=== PATIENT | male | born 1985 | race Caucasian/White ===

== ENCOUNTER 2016-07-15 07:19 | Emergency (ER) | payer OTHER ==
[2016-07-15] MEDS ORDERED: TORAdol 30 mg Injection IM ONE (07:27)
[2016-07-15] MEDS ORDERED: Norflex 60 MG/2 ML IM ONE (07:27)
[2016-07-15 07:32] VITALS: O2SAT 97
[2016-07-15] MEDS ORDERED: TORAdol 30 mg Injection ONE (07:32)
[2016-07-15] MEDS ORDERED: Norflex 60 MG/2 ML ONE (07:33)
--- NOTE | 2016-07-15 07:35 | ERPHSYRPT ---
- History of Present Illness Time Seen by Provider: 07/15/16 07:30 Source: patient Exam Limitations: no limitations Physician History: c/o back pain and left leg pain for 1 day, Started when moving furniture Timing/Duration: yesterday Method of Injury: bending, lifting, twisted Quality: aching Back Pain Location: lumbar spine, paraspinous muscles Back Pain Radiation: lower legs Severity of Pain-Max: moderate Severity of Pain-Current: moderate Modifying Factors: Improves With: nothing Associated Symptoms: denies symptoms Previous symptoms: no prior history Home Medications: No Reportable Medications [No Reported Medications] 07/15/16 [History] Hx Tetanus, Diphtheria Vaccination/Date Given: No Hx Influenza Vaccination/Date Given: No Hx Pneumococcal Vaccination/Date Given: No - Review of Systems Constitutional: No Fever, No Chills Eyes: No Symptoms Ears, Nose, & Throat: No Symptoms Respiratory: No Symptoms, No Cough, No Dyspnea Cardiac: No Symptoms, No Chest Pain, No Edema, No Syncope Abdominal/Gastrointestinal: No Symptoms, No Abdominal Pain, No Nausea, No Vomiting, No Diarrhea Genitourinary Symptoms: No Symptoms, No Dysuria Musculoskeletal: Back Pain, No Neck Pain Skin: No Symptoms, No Rash Neurological: No Dizziness, No Focal Weakness, No Sensory Changes Psychological: No Symptoms Endocrine: No Symptoms All Other Systems: Reviewed and Negative - Past Medical History Pertinent Past Medical History: Yes Respiratory History: Asthma Psycho-Social History: Attention Deficit Disorder Other Medical History: has never been confirmed but states he thinks he has hepatitis - Past Surgical History Past Surgical History: No - Social History Smoking Status: Current every day smoker Exposure to second hand smoke: Yes - Physical Exam General Appearance: no apparent distress Eye Exam: PERRL/EOMI Ears, Nose, Throat Exam: normal ENT inspection Neck Exam: normal inspection Back Exam: decreased range of motion, muscle spasm, No CVA tenderness, No vertebral tenderness Extremity Exam: normal inspection - Course Nursing assessment & vital signs reviewed: Yes Ordered Tests: Medication Summary Discontinued Medications Generic Name Dose Route Start Last Admin Trade Name Freq PRN Reason Stop Dose Admin Ketorolac Tromethamine 60 mg 07/15/16 07:27 Toradol 30 Mg Injection IM 07/15/16 07:28 STAT ONE Orphenadrine Citrate 60 mg 07/15/16 07:27 Norflex 60 Mg/2 Ml IM 07/15/16 07:28 STAT ONE - Progress Progress: improved, pain not gone completely Counseled pt/family regarding: diagnosis, need for follow-up - Departure Time of Disposition: 07:34 Departure Disposition: Home Clinical Impression: Lumbalgia Qualifiers: Chronicity: acute Back pain laterality: left Sciatica presence: with sciatica Sciatica laterality: sciatica of left side Qualified Code(s): M54.42 - Lumbago with sciatica, left side Condition: Stable Critical Care Time: No Referrals: ELIGIO HENDERSON [Primary Care Provider] - Instructions: Low Back Pain Additional Instructions: BACK INJURY 1. May apply moist heat frequently for relief of pain. Take care not to burn the skin. Do not use heat for more than 30 minutes at a time. 2. Try to sleep on a firm bed, flat on your back. 3. If no improvement is noticed in 2-3 days, follow up with your family physician. 4. If you notice any numbness, tingling, weakness, or problems with your bowel or bladder, you should call your family physician or return to the emergency department. Prescriptions: Cyclobenzaprine HCl 10 mg PO TID #30 tablet Naproxen 375 mg [Naprosyn 375 mg] 375 mg PO Q8H #30 tablet
[2016-07-15 07:55] VITALS: BP 116/79; PULSE 78
== END 2016-07-15 08:00 | disposition home or self-care (01) ==
LOC: ED 07:19
DX: M54.42 Lumbago with sciatica, left side (principal); M54.9 Dorsalgia, unspecified; M79.605 Pain in left leg; X50.0XXA Overexertion from strenuous movement or load, initial encounter; Y93.E6 Activity, residential relocation
CPT/HCPCS: 96372; 99283; 99284; J1885; J2360

== ENCOUNTER 2017-02-01 13:41 | Emergency (ER) | payer OTHER ==
[2017-02-01 14:20] LABS: BASOPHIL % 0.9 % (0.0-0.4); Eosinophil % 2.5 % (0.00-5.0); Granulocytes % 58.4 % (36.0-66.0); Lymphocytes % 29.4 % (24.0-44.0); Mean Cell Volume 92.8 fl (78-100); Mean Corpuscular Hemoglobin 31.4 pg (26-32); Mean Platelet Volume 9.8 fl (6-9.5); Monocytes % 8.8 % (0.0-12.0); Platelet Count 364 K/mm3 (150-450); Red Cell Distribution Width 12.7 % (11.5-14.0); White Blood Count 9.2 K/mm3 (4.0-10.5)
--- NOTE | 2017-02-01 14:22 | ERPHSYRPT ---
- History of Present Illness Time Seen by Provider: 02/01/17 13:53 Source: patient, other (skilled nursing records) Patient Subjective Stated Complaint: PT REPROTS HX OF LIVER PROBLEMS-STATES HE BEGAN HAVING ABD PAIN ET NAUSEA YESTERDAY-REPORTS CHRONIC DIARHEA-PT HAS HX OF HEB B ET C-DENIES VOMITING REPORTS NAUSEA Triage Nursing Assessment: PT PINK WARM ET [id number] EASY ET NONALBORED- ABD NONTENDER TO PALP-PT HOLD ET PUSHING ON RIGHT UPPER QUAD Physician History: CC: RUQ abd pain Hx: 31 y/o [facility] inmate has hx of known hep b and hep c. He states he has right upper abd pain for 2 days. [facility] doctor saw him today and sent him here for labs and sonogram. No fever or chills. Some diarrhea. No vomiting. Not yellow. Timing/Duration: day(s) (2) Allergies/Adverse Reactions: No Known Drug Allergies Allergy (Verified 02/01/17 13:53) Home Medications: Albuterol Sulfate [Ventolin Hfa] 8 gm IH BID 02/01/17 [History] Ibuprofen 800 mg PO BID 02/01/17 [History] Olanzapine [Zyprexa] 50 mg PO BID 02/01/17 [History] Omeprazole 20 MG [Prilosec 20 mg] 20 mg PO DAILY 02/01/17 [History] Sertraline HCl 50 mg [Zoloft 50 mg Tablet] 50 mg PO DAILY 02/01/17 [History] Hx Tetanus, Diphtheria Vaccination/Date Given: No Hx Influenza Vaccination/Date Given: No Hx Pneumococcal Vaccination/Date Given: No Immunizations Up to Date: Yes - Review of Systems Constitutional: Malaise, No Fever, No Chills Eyes: No Symptoms Ears, Nose, & Throat: No Symptoms Respiratory: No Cough, No Dyspnea Cardiac: No Chest Pain Abdominal/Gastrointestinal: Abdominal Pain, Diarrhea, No Nausea, No Vomiting Genitourinary Symptoms: No Dysuria Musculoskeletal: Back Pain (right flank) Skin: No Rash Neurological: No Headache All Other Systems: Reviewed and Negative - Past Medical History Pertinent Past Medical History: Yes Respiratory History: Asthma Psycho-Social History: Attention Deficit Disorder Other Medical History: Hepatitis B and C - Past Surgical History Past Surgical History: No - Social History Smoking Status: Current every day smoker How long have you smoked: YRS Exposure to second hand smoke: Yes Drug Use: bath salts, methamphetamines, narcotics Patient Lives Alone: No ([facility]) - Nursing Vital Signs Nursing Vital Signs: Initial Vital Signs Temperature 98.2 F 02/01/17 13:52 Pulse Rate 77 02/01/17 13:52 Respiratory Rate 20 02/01/17 13:52 Blood Pressure 147/82 02/01/17 13:52 O2 Sat by Pulse Oximetry 97 02/01/17 13:52 Pain Scale Pain Intensity 8 - Physical Exam General Appearance: no apparent distress, alert Eye Exam: PERRL/EOMI, No scleral icterus Ears, Nose, Throat Exam: normal ENT inspection, moist mucous membranes Neck Exam: normal inspection, non-tender, supple Respiratory Exam: normal breath sounds, lungs clear Cardiovascular Exam: regular rate/rhythm Gastrointestinal/Abdomen Exam: soft, tenderness (mild RUQ and right flank without guarding), No distention, No mass, No guarding Male Genitalia Exam: normal genitalia Back Exam: normal inspection Extremity Exam: normal range of motion, No pedal edema Neurologic Exam: alert, oriented x 3, cooperative, nml station & gait, sensation nml, motor deficits Skin Exam: warm, dry, No rash, No jaundice SpO2 Interpretation: normal SpO2: 97 Oxygen Delivery: Room Air - Course Nursing assessment & vital signs reviewed: Yes Ordered Tests: Active Orders 24 hr Category Date Time Status Clean Catch Urine Specimen STAT Care 02/01/17 14:00 Active IV Insertion STAT Care 02/01/17 14:00 Active NPO (ED) STAT Care 02/01/17 14:00 Active OBSTR/ACUTE ABDOMEN SERIES Stat Exams 02/01/17 14:01 Completed UPPER ABDOMEN [US] Stat Exams 02/01/17 Completed BMP Stat Lab 02/01/17 14:00 Completed CBC W DIFF Stat Lab 02/01/17 14:00 Completed Hepatic Function Panel Stat Lab 02/01/17 14:00 Completed LIPASE Stat Lab 02/01/17 14:00 Completed PROTIME WITH INR Stat Lab 02/01/17 14:00 Completed UA W/RFX UR CULTURE Stat Lab 02/01/17 14:40 Completed Lab/Rad Data: Laboratory Result Diagrams 02/01/17 14:00 02/01/17 14:00 Laboratory Results 02/01/17 02/01/1717 Range/Units 14:40 14:00 14:00 WBC (4.0-10.5) K/mm3 RBC (4.1-5.6) M/mm3 Hgb (12.5-18.0) gm/dl Hct (42-50) % MCV (78-100) fl MCH (26-32) pg MCHC (32-36) g/dl RDW (11.5-14.0) % Plt Count (150-450) K/mm3 MPV (6-9.5) fl Gran % (36.0-66.0) % Lymphocytes % (24.0-44.0) % Monocytes % (0.0-12.0) % Eosinophils % (0.00-5.0) % Basophils % (0.0-0.4) % Basophils # (0-0.4) INR (0.8-3.0) Sodium 142 (136-145) mEq/L Potassium 3.8 (3.5-5.1) mEq/L Chloride 106 (98-107) mEq/L Carbon Dioxide 26.8 (21-32) mEq/L Anion Gap 12.8 (5-15) MEQ/L BUN 9 (9-20) mg/dL Creatinine 0.92 (0.55-1.30) mg/dl Estimated GFR > 60 ML/MIN Glucose 95 (70-110) MG/DL Calcium 8.8 (8.5-10.1) mg/dL Total Bilirubin 0.30 (0.2-1.0) mg/dL Direct Bilirubin 0.05 (0.0-0.2) MG/DL AST 17 (15-37) U/L ALT 22 (12-78) U/L Alkaline Phosphatase 103 (46-116) U/L Ammonia 11 (11-32) MMOL/l Serum Total Protein 7.5 (6.4-8.2) gm/dL Albumin 3.9 (3.4-5.0) g/dL Lipase 127 (73-393) U/L Ur Collection Type CCMS Urine Color YELLOW (YELLOW) Urine Appearance CLEAR (CLEAR) Urine pH 6.0 (5-6) Ur Specific Delong 1.010 (1.005-1.025) Urine Protein NEGATIVE (Negative) Urine Ketones NEGATIVE (NEGATIVE) Urine Blood NEGATIVE (0-5) Ochoa/ul Urine Nitrite NEGATIVE (NEGATIVE) Urine Bilirubin NEGATIVE (NEGATIVE) Urine Urobilinogen NORMAL (0-1) mg/dL Ur Leukocyte Esterase NEGATIVE (NEGATIVE) Urine Glucose NEGATIVE (NEGATIVE) mg/dL Specimen Received 02-01-17 1445 02/01/17 02/01/17 Range/Units 14:00 14:00 WBC 9.2 (4.0-10.5) K/mm3 RBC 4.30 (4.1-5.6) M/mm3 Hgb 13.5 (12.5-18.0) gm/dl Hct 39.9 L (42-50) % MCV 92.8 (78-100) fl MCH 31.4 (26-32) pg MCHC 33.8 (32-36) g/dl RDW 12.7 (11.5-14.0) % Plt Count 364 (150-450) K/mm3 MPV 9.8 H (6-9.5) fl Gran % 58.4 (36.0-66.0) % Lymphocytes % 29.4 (24.0-44.0) % Monocytes % 8.8 (0.0-12.0) % Eosinophils % 2.5 (0.00-5.0) % Basophils % 0.9 (0.0-0.4) % Basophils # 0.08 (0-0.4) INR 0.95 (0.8-3.0) Sodium (136-145) mEq/L Potassium (3.5-5.1) mEq/L Chloride (98-107) mEq/L Carbon Dioxide (21-32) mEq/L Anion Gap (5-15) MEQ/L BUN (9-20) mg/dL Creatinine (0.55-1.30) mg/dl Estimated GFR ML/MIN Glucose (70-110) MG/DL Calcium (8.5-10.1) mg/dL Total Bilirubin (0.2-1.0) mg/dL Direct Bilirubin (0.0-0.2) MG/DL AST (15-37) U/L ALT (12-78) U/L Alkaline Phosphatase (46-116) U/L Ammonia (11-32) MMOL/l Serum Total Protein (6.4-8.2) gm/dL Albumin (3.4-5.0) g/dL Lipase (73-393) U/L Ur Collection Type Urine Color (YELLOW) Urine Appearance (CLEAR) Urine pH (5-6) Ur Specific Delong (1.005-1.025) Urine Protein (Negative) Urine Ketones (NEGATIVE) Urine Blood (0-5) Ochoa/ul Urine Nitrite (NEGATIVE) Urine Bilirubin (NEGATIVE) Urine Urobilinogen (0-1) mg/dL Ur Leukocyte Esterase (NEGATIVE) Urine Glucose (NEGATIVE) mg/dL Specimen Received - Progress Progress Note: 02/01/17 15:43 AAS and abdominal sonogram wnl. Tests reassuring. Will return to skilled nursing with test results. Counseled pt/family regarding: lab results, rad results - Departure Time of Disposition: 15:44 Departure Disposition: Home Clinical Impression: RUQ abdominal pain, reported hx hepatitis Condition: Stable Critical Care Time: No Referrals: KAYLEEN BROWN MD [NON-STAFF PHY W/O PRIVILEGES] - Instructions: Abdominal Pain-Adult Additional Instructions: Return to skilled nursing. Further care per Dr Brown.
--- NOTE | 2017-02-01 14:34 | XRAY ---
Indication: Abdominal pain. Comparison: Chest exam October 26, 2015. 2 views of the abdomen nonacute and nonobstructed. Solid organs and osseous structures unremarkable. Single PA chest again demonstrates normal heart, lungs, and bony thorax with a few incidental calcified granulomas. Impression: Negative abdomen. Stable normal 1 view chest.
[2017-02-01 14:39] LABS: ALBUMIN 3.9 g/dL (3.4-5.0); ALKALINE PHOSPHATASE 103 U/L (46-116); ANION GAP 12.8 MEQ/L (5-15); BLOOD UREA NITROGEN 9 mg/dL (9-20); CHLORIDE 106 mEq/L (98-107); Carbon Dioxide 26.8 mEq/L (21-32); Direct Bilirubin 0.05 MG/DL (0.0-0.2); Glucose 95 MG/DL (70-110); INR 0.95 (0.8-3.0); LIPASE 127 U/L (73-393); PROTIME 10.7 SECONDS (8.83-12.87); Potassium 3.8 mEq/L (3.5-5.1); SGPT/ALT 22 U/L (12-78); SODIUM 142 mEq/L (136-145); Total Protein 7.5 gm/dL (6.4-8.2)
[2017-02-01 14:45] LABS: ADD URINE CULTURE? NO (NO); Bilirubin NEGATIVE (NEGATIVE); Blood NEGATIVE Ery/ul (0-5); COMPLETE URINE MICROSCOPIC? NO; Collection Type CCMS; Glucose NEGATIVE (NEGATIVE); Leukocyte Esterase NEGATIVE (NEGATIVE)
[2017-02-01 15:32] LABS: SGOT/AST 17 U/L (15-37)
--- NOTE | 2017-02-01 15:38 | XRAY ---
Indication: Right flank pain. Hepatitis. Two-dimensional abdominal sonogram performed. Comparison: None Gallbladder is contracted as the patient ate prior to the exam. This would explain gallbladder wall thickening. No gallstones or pericholecystic fluid. Common bile duct measures 3 mm. No ascites. Remaining visualized portions of the liver, pancreas, and both kidneys appear sonographically unremarkable. No hepatomegaly. Right kidney measures 10.4 cm and the left measures 12 cm in length. Images of the urinary bladder unremarkable. Impression: Contracted gallbladder explained by patient eating prior to the exam. Remaining abdominal sonogram is negative.
[2017-02-01 15:58] VITALS: BP 161/88; PULSE 78; O2SAT 98
== END 2017-02-01 15:55 | disposition home or self-care (01) ==
LOC: ED 13:41
DX: R10.11 Right upper quadrant pain (principal); Z86.19 Personal history of other infectious and parasitic diseases
CPT/HCPCS: 36000; 36415; 74022; 76700; 80048; 80076; 81002; 82140; 83690; 85025; 85610; 99284; 99285

== ENCOUNTER 2021-12-26 12:20 | Emergency (ER) | payer OTHER ==
[2021-12-26 12:47] VITALS: BP 115/62
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
[2021-12-26] MEDS ORDERED: TORAdol 30 mg Injection IM ONE (13:56)
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
[2021-12-26] MEDS ORDERED: TORAdol 30 mg Injection ONE (14:04)
[2021-12-26 14:06] VITALS: PULSE 74
[2021-12-26 14:08] VITALS: O2SAT 95
== END 2021-12-26 14:30 | disposition home or self-care (01) ==
LOC: ED 12:20
DX: S83.411A Sprain of medial collateral ligament of right knee, initial encounter (principal); V18.0XXA Pedal cycle driver injured in noncollision transport accident in nontraffic accident, initial encounter; Y93.55 Activity, bike riding; M25.561 Pain in right knee; Z72.0 Tobacco use; Z79.891 Long term (current) use of opiate analgesic
CPT/HCPCS: 73562; 96372; 99283; J1885; L1830